=== PATIENT | female | born 1980 | race Hispanic/Latino ===

== ENCOUNTER 2020-11-09 16:13 | Emergency (ER) | payer SELFPAY ==
[~2020-11-09] VITALS: Ht 157.5 cm; Wt 90.0 kg
[2020-11-09] MEDS ORDERED: THYROID MED (18:09)
[2020-11-09] MEDS ORDERED: MEDDOSEPAK PO (18:43)
[2020-11-09] MEDS ORDERED: PEPCID20 MG PO (18:43)
[2020-11-09 18:53] VITALS: BP 129/62
== END 2020-11-09 17:53 | disposition home or self-care (01) | DRG 916 ==
LOC: ED 16:13
DX: T78.40XA Allergy, unspecified, initial encounter (principal); X58.XXXA Exposure to other specified factors, initial encounter